=== PATIENT | female | born 1975 | race Caucasian/White ===

== ENCOUNTER 2019-06-19 11:58 | Emergency (ER) | payer MEDICAID, OTHER ==
[~2019-06-19] VITALS: Ht 167.6 cm; Wt 126.2 kg
[2019-06-19 12:14] VITALS: BP 157/85
[2019-06-19] MEDS: LIDOcaine/epinephrine TOPICAL 5 ML BTL TOP ONE ×2 (14:00→14:04)
[2019-06-19] MEDS ORDERED: CLIN150C2 PO (15:03)
[2019-06-19] MEDS ORDERED: L. R1CAP4 PO (15:03)
== END 2019-06-19 15:19 | disposition home or self-care (01) ==
LOC: ER 11:58
DX: L02.01 Cutaneous abscess of face (principal); I10 Essential (primary) hypertension; F17.200 Nicotine dependence, unspecified, uncomplicated; F12.90 Cannabis use, unspecified, uncomplicated; F15.90 Other stimulant use, unspecified, uncomplicated; Z79.2 Long term (current) use of antibiotics; Z98.890 Other specified postprocedural states
CPT/HCPCS: 10060; 99283

== ENCOUNTER 2020-04-01 17:44 | Emergency (ER) | payer MEDICAID ==
[~2020-04-01] VITALS: Ht 167.6 cm; Wt 132.0 kg
[~2020-04-01 17:44] MED LIST: L. R1CAP4 PO
[2020-04-01] MEDS ORDERED: normal saline 1000ML IV soln IVB ONE (18:05)
[2020-04-01 18:23] VITALS: BP 165/102
[2020-04-01 18:46] LABS: BASOPHILS % (AUTO) 0.4 % (0-1); EOSINOPHILS # (AUTO) 0.3 X10'3 (0-0.9); EOSINOPHILS % (AUTO) 3.3 % (0-6); HEMATOCRIT 39.1 % (35.0-45.0); HEMOGLOBIN 13.1 g/dl (12.0-16.0); LYMPHOCYTES # (AUTO) 2.3 X10'3 (1.1-4.8); LYMPHOCYTES % (AUTO) 23.1 % (21-51); MEAN CORPUSCULAR HEMOGLOBIN 29.1 PG (27.0-31.0); MEAN CORPUSCULAR HGB CONC 33.6 g/dL (33.0-36.5); MEAN CORPUSCULAR VOLUME 86.6 FL (78-98); MEAN PLATELET VOLUME 7.5 FL (7.4-10.4); MONOCYTES % (AUTO) 9.5 % (2-12); NEUTROPHILS # (AUTO) 6.4 X10'3 (1.8-7.7); NEUTROPHILS % (AUTO) 63.7 % (42-75); PLATELET COUNT 384 X10'3 (140-440); RED BLOOD COUNT 4.51 X10'6 (4.20-5.60); WHITE BLOOD COUNT 10.1 X10'3 (4.5-11.0)
[2020-04-01 19:01] LABS: CLARITY,URINE CLEAR (Clear); COLOR,URINE YELLOW (Yellow); GLUCOSE, URINE NEGATIVE (Neg); KETONES,URINE NEGATIVE (Neg); LEUKOCYTE ESTERASE ,URINE NEGATIVE (Neg); NITRITES, URINE NEGATIVE (Neg); OCCULT BLOOD,URINE NEGATIVE (Neg); PH,URINE 5.5 (4.8-8.0); PROTEIN,URINE NEGATIVE (Neg); UROBILINOGEN,URINE 0.2 E.U/dL (0.2-1.0)
[2020-04-01 19:02] LABS: URINE HCG NEGATIVE (NEG)
[2020-04-01 19:05] LABS: ALANINE AMINOTRANSFERASE 22 U/L (12-78); ALBUMIN 3.3 G/DL (3.4-5.0); ALKALINE PHOSPHATASE 54 IU/L (46-116); ANION GAP 9 (8-16); ASPARTATE AMINO TRANSFERASE 19 U/L (10-37); BILIRUBIN,TOTAL 0.2 MG/DL (0.1-1.0); BLOOD UREA NITROGEN 14 MG/DL (7-18); BUN/CREATININE RATIO 16.9 (6.6-38.0); CALCIUM 8.5 MG/DL (8.5-10.1); CHLORIDE 107 MMOL/L (99-107); CREATININE 0.83 MG/DL (0.40-0.90); ETHANOL < 0.010 GM/DL (0.0-0.010); GLUCOSE 90 MG/DL (70-104); POTASSIUM 3.3 MMOL/L (3.5-5.1); SODIUM 141 MMOL/L (135-145); TOTAL CARBON DIOXIDE 24.9 MMOL/L (24-32); TOTAL PROTEIN 6.7 G/DL (6.4-8.2); eGFR 75 ML/MIN
[2020-04-01 19:05] LABS: UA COLLECTION TYPE CLN CATCH MIDSTREAM
[2020-04-01 19:16] LABS: URINE AMPHETAMINE SCREEN NEGATIVE (Neg); URINE BARBITUATE SCREEN NEGATIVE (Neg); URINE BENZODIAZEPINES SCREEN NEGATIVE (Neg); URINE CANNABINOID SCREEN NEGATIVE (Neg); URINE COCAINE SCREEN NEGATIVE (Neg); URINE METHADONE SCREEN NEGATIVE (Neg); URINE OPIATE SCREEN NEGATIVE (Neg); URINE PHENCYCLIDINE SCREEN NEGATIVE (Neg)
== END 2020-04-01 20:48 | disposition home or self-care (01) ==
LOC: ER 17:45
DX: R55 Syncope and collapse (principal); R11.0 Nausea; R51 Headache; I10 Essential (primary) hypertension; F15.90 Other stimulant use, unspecified, uncomplicated; F12.90 Cannabis use, unspecified, uncomplicated; Z98.890 Other specified postprocedural states; Z79.4 Long term (current) use of insulin
CPT/HCPCS: 36415; 80053; 80305; 80320; 81003; 81025; 85025; 93005; 99284; J7030

== ENCOUNTER 2020-07-06 16:55 | Emergency (ER) | payer MEDICAID ==
[~2020-07-06] VITALS: Ht 167.6 cm; Wt 132.9 kg
[2020-07-06 16:57] VITALS: BP 137/74
--- NOTE | 2020-07-06 17:30 | NUR ---
Patient with jammed finger but denies pain. She states she is unable to straighten the finger.
== END 2020-07-06 18:30 | disposition home or self-care (01) ==
LOC: ER 16:55
DX: S60.032A Contusion of left middle finger without damage to nail, initial encounter (principal); M20.012 Mallet finger of left finger(s); I10 Essential (primary) hypertension; F12.90 Cannabis use, unspecified, uncomplicated; F15.90 Other stimulant use, unspecified, uncomplicated; Z98.890 Other specified postprocedural states; Z79.899 Other long term (current) drug therapy; W21.01XA Struck by football, initial encounter; Y93.61 Activity, american tackle football; Y92.89 Other specified places as the place of occurrence of the external cause; Y99.8 Other external cause status
CPT/HCPCS: 29130; 73140; 99283

== ENCOUNTER 2020-07-31 20:01 | Emergency (ER) | payer MEDICAID ==
[~2020-07-31] VITALS: Ht 167.6 cm; Wt 135.8 kg
[2020-07-31 20:10] VITALS: BP 154/82
[2020-07-31] MEDS ORDERED: LIDOcaine 1% W/epiNEPHrine 1:200,000 10ml vial IJ ONE (20:40)
[2020-07-31] MEDS ORDERED: TETanus/Pertussis (Acell)/Diphther VAC/PF (Tdap-Adult) 0.5ml syringe IMVAC ONE (20:40)
[2020-07-31] MEDS ORDERED: bacitracin 15gm ointment TP ONE (20:40)
[2020-07-31] MEDS ORDERED: LIDOcaine 1% w/epiNEPHrine 1:200,000 30ml vial IJ ONE (21:10)
== END 2020-07-31 21:59 | disposition home or self-care (01) ==
LOC: ER 20:03
DX: S61.211A Laceration without foreign body of left index finger without damage to nail, initial encounter (principal); I10 Essential (primary) hypertension; F12.90 Cannabis use, unspecified, uncomplicated; F15.90 Other stimulant use, unspecified, uncomplicated; Z98.890 Other specified postprocedural states; Z79.899 Other long term (current) drug therapy; W45.8XXA Other foreign body or object entering through skin, initial encounter; Y93.89 Activity, other specified; Y92.89 Other specified places as the place of occurrence of the external cause; Y99.8 Other external cause status
CPT/HCPCS: 12001; 90471; 90715; 99283

== ENCOUNTER 2020-09-22 01:08 | Emergency (ER) | payer MEDICAID ==
[~2020-09-22] VITALS: Ht 167.6 cm; Wt 140.0 kg
[2020-09-22 01:10] VITALS: BP 116/58
[2020-09-22] MEDS ORDERED: LIDOcaine 1% W/epiNEPHrine 1:200,000 10ml vial IJ ONE (01:35)
[2020-09-22] MEDS ORDERED: LIDOcaine 1% W/epiNEPHrine 1:100,000 20ml vial IJ ONE (01:45)
[2020-09-22] MEDS ORDERED: CEPH500C5 PO (02:42)
[2020-09-22] MEDS ORDERED: cephalexin 500mg capsule PO ONE (02:45)
== END 2020-09-22 03:15 | disposition home or self-care (01) ==
LOC: ER 01:08
DX: S91.312A Laceration without foreign body, left foot, initial encounter (principal); I10 Essential (primary) hypertension; F12.90 Cannabis use, unspecified, uncomplicated; F15.90 Other stimulant use, unspecified, uncomplicated; F17.290 Nicotine dependence, other tobacco product, uncomplicated; Z98.890 Other specified postprocedural states; Z79.2 Long term (current) use of antibiotics; Z79.899 Other long term (current) drug therapy; W25.XXXA Contact with sharp glass, initial encounter; Y93.89 Activity, other specified; Y92.89 Other specified places as the place of occurrence of the external cause; Y99.8 Other external cause status
CPT/HCPCS: 12001; 73630; 99284; 99406

== ENCOUNTER 2022-03-23 06:39 | Emergency (ER) | payer MEDICAID ==
[~2022-03-23] VITALS: Ht 167.6 cm; Wt 125.5 kg
[~2022-03-23 06:39] MED LIST changes: +LIDO20SO16 PO
[2022-03-23 08:01] LABS: BASOPHILS # (AUTO) 0.1 X10'3 (0-0.2); BASOPHILS % (AUTO) 0.7 % (0-1); EOSINOPHILS # (AUTO) 0.1 X10'3 (0-0.9); EOSINOPHILS % (AUTO) 1.3 % (0-6); HEMATOCRIT 42.4 % (35.0-45.0); HEMOGLOBIN 14.8 g/dl (12.0-16.0); LYMPHOCYTES # (AUTO) 1.4 X10'3 (1.1-4.8); LYMPHOCYTES % (AUTO) 14.3 % (21-51); MEAN CORPUSCULAR HEMOGLOBIN 33.3 PG (27.0-31.0); MEAN CORPUSCULAR HGB CONC 34.9 g/dL (33.0-36.5); MEAN CORPUSCULAR VOLUME 95.2 FL (78-98); MEAN PLATELET VOLUME 7.7 FL (7.4-10.4); MONOCYTES # (AUTO) 0.8 X10'3 (0-0.9); MONOCYTES % (AUTO) 8.3 % (2-12); NEUTROPHILS # (AUTO) 7.6 X10'3 (1.8-7.7); NEUTROPHILS % (AUTO) 75.4 % (42-75); PLATELET COUNT 323 X10'3 (140-440); RED BLOOD COUNT 4.45 X10'6 (4.20-5.60); RED CELL DISTRIBUTION WIDTH 15.3 % (11.5-14.5); WHITE BLOOD COUNT 10.1 X10'3 (4.5-11.0)
[2022-03-23 08:20] LABS: ALANINE AMINOTRANSFERASE 72 U/L (12-78); ALBUMIN 3.1 G/DL (3.4-5.0); ALBUMIN/GLOBULIN RATIO 0.8 (1.1-1.5); ALKALINE PHOSPHATASE 113 IU/L (46-116); ANION GAP 13 (8-16); ASPARTATE AMINO TRANSFERASE 115 U/L (10-37); BILIRUBIN,TOTAL 0.9 MG/DL (0.1-1.0); BLOOD UREA NITROGEN 8 MG/DL (7-18); BUN/CREATININE RATIO 9.4 (6.6-38.0); CALCIUM 8.5 MG/DL (8.5-10.1); CHLORIDE 104 MMOL/L (99-107); CREATININE 0.85 MG/DL (0.40-0.90); GLUCOSE 87 MG/DL (70-104); SODIUM 139 MMOL/L (135-145); TOTAL CARBON DIOXIDE 22.2 MMOL/L (24-32); TOTAL PROTEIN 7.1 G/DL (6.4-8.2); eGFR 73 ML/MIN
[2022-03-23 08:24] LABS: POTASSIUM 2.9 MMOL/L (3.5-5.1)
[2022-03-23] MEDS ORDERED: POTASSIUM BICARB 20meq eff tab 20 MEQ TABLET.EFF PO ONE ×2 (08:35→08:50)
[2022-03-23] MEDS ORDERED: POTA-192 PO (08:45)
[2022-03-23 09:07] VITALS: BP 111/72
== END 2022-03-23 09:08 | disposition home or self-care (01) ==
LOC: ER 06:39
DX: E87.6 Hypokalemia (principal); R00.2 Palpitations; R79.89 Other specified abnormal findings of blood chemistry; I10 Essential (primary) hypertension; F12.90 Cannabis use, unspecified, uncomplicated; F15.90 Other stimulant use, unspecified, uncomplicated; Z72.89 Other problems related to lifestyle; Z79.899 Other long term (current) drug therapy
CPT/HCPCS: 36415; 71045; 80053; 83880; 84484; 85025; 93005; 99285

== ENCOUNTER 2022-09-17 18:19 | Emergency (ER) | payer MEDICAID ==
[~2022-09-17] VITALS: Ht 167.6 cm; Wt 123.6 kg
[2022-09-17 18:38] LABS: BASOPHILS # (AUTO) 0.1 X10'3 (0-0.2); BASOPHILS % (AUTO) 0.8 % (0-1); EOSINOPHILS # (AUTO) 0.2 X10'3 (0-0.9); EOSINOPHILS % (AUTO) 1.2 % (0-6); HEMATOCRIT 42.4 % (35.0-45.0); HEMOGLOBIN 14.4 g/dl (12.0-16.0); LYMPHOCYTES % (AUTO) 19.2 % (21-51); MEAN CORPUSCULAR HEMOGLOBIN 27.9 PG (27.0-31.0); MEAN CORPUSCULAR VOLUME 82.2 FL (78-98); MEAN PLATELET VOLUME 6.9 FL (7.4-10.4); MONOCYTES # (AUTO) 0.9 X10'3 (0-0.9); MONOCYTES % (AUTO) 5.7 % (2-12); NEUTROPHILS # (AUTO) 11.4 X10'3 (1.8-7.7); NEUTROPHILS % (AUTO) 73.1 % (42-75); PLATELET COUNT 479 X10'3 (140-440); RED BLOOD COUNT 5.15 X10'6 (4.20-5.60); RED CELL DISTRIBUTION WIDTH 16.3 % (11.5-14.5); WHITE BLOOD COUNT 15.6 X10'3 (4.5-11.0)
[2022-09-17 18:58] LABS: ALANINE AMINOTRANSFERASE 16 U/L (12-78); ALBUMIN 3.4 G/DL (3.4-5.0); ALBUMIN/GLOBULIN RATIO 0.8 (1.1-1.5); ALKALINE PHOSPHATASE 127 IU/L (46-116); ANION GAP 16 (8-16); ASPARTATE AMINO TRANSFERASE 19 U/L (10-37); BILIRUBIN,TOTAL 0.2 MG/DL (0.1-1.0); BLOOD UREA NITROGEN 9 MG/DL (7-18); BUN/CREATININE RATIO 10.6 (6.6-38.0); CHLORIDE 100 MMOL/L (99-107); CREATININE 0.85 MG/DL (0.40-0.90); GLUCOSE 117 MG/DL (70-104); MAGNESIUM 1.9 MG/DL (1.5-2.4); SODIUM 137 MMOL/L (135-145); TOTAL CARBON DIOXIDE 21.3 MMOL/L (24-32); TOTAL PROTEIN 7.9 G/DL (6.4-8.2); eGFR 73 ML/MIN
[2022-09-17 19:05] LABS: POTASSIUM 2.8 MMOL/L (3.5-5.1)
--- NOTE | 2022-09-17 19:33 | NUR ---
Dr. David aware K@2.8
[2022-09-17] MEDS: potassium CL 10mEq/100ml bag 100 ML IV SCH ×2 (21:12→22:27)
[2022-09-17] MEDS ORDERED: acetaminophen 325mg tablet PO ONE (22:45)
[2022-09-18] MEDS ORDERED: thiamine 100mg/ml 2ml inj. IV ONE (00:20)
[2022-09-18] MEDS ORDERED: magnesium 2GM in 50ml NS 50 ML IV ONE (00:20)
[2022-09-18] MEDS ORDERED: potassium Cl 20 mEq SR tablet PO STA (02:28)
[2022-09-18] MEDS ORDERED: POTA10CA45 PO (02:30)
[2022-09-18 03:09] VITALS: BP 144/74
== END 2022-09-18 03:13 | disposition home or self-care (01) ==
LOC: ER 18:20
DX: E87.6 Hypokalemia (principal); R00.2 Palpitations
CPT/HCPCS: 36415; 80053; 83735; 83880; 84484; 85025; 96365; 96366; 96367; 96375; 99285; J3411; J3475; J3480; J7030

== ENCOUNTER 2025-02-12 08:45 | Emergency (ER) | payer MEDICAID ==
[~2025-02-12] VITALS: Ht 167.6 cm; Wt 127.1 kg
[2025-02-12 08:50] VITALS: BP 159/81; PULSE 67; RESP 18; TEMP 97.4; O2SAT 97
--- NOTE | 2025-02-12 09:21 | Physician Documentation ---
HPI ~ General Chief Complaint: Tooth Problem Stated Complaint: TOOTH PAIN Time Seen by MD: 08:59 Primary Medical Doctor: [facility] History of Present Illness HPI Comment This is a 49-year-old female who presents with left lower rear dental pain, patient reports that she is attempting to get in with a dentist though has been unable to find when locally that takes her insurance, she additionally reports she was seen for right upper rear dental pain at [facility] three weeks ago and was prescribed antibiotics however she feels that this did not help. Patient currently rates the pain 12/23, patient reports that she has been alternating ibuprofen and Tylenol with only mild relief. Medication Reconciliation Allergies: Coded Allergies: No Known Allergies (Unverified , 02/12/25) Scheduled Ibuprofen (Ibuprofen), 1 TAB PO Q8H L. Rhamnosus GG/Inulin (Culturelle Probiotics Capsule), 1 CAP PO Q12H PRN Lidocaine Hcl (Xylocaine Viscous), 5 ML PO Q2H PRN SORE THROAT Scheduled PRN Lidocaine Hcl (Xylocaine Viscous), 5 ML PO Q4H PRN for mouth sores Past Medical History Past Medical History: Hypertension Past Surgical History: Alcohol Use: Alcoholic Drug Use: marijuana, methamphetamine Lives In: Home Review of Systems ROS Left lower dental pain as stated above in the HPI, otherwise all systems are reviewed and negative. Physical Exam Vital Signs: Temperature: 97.4, Source: Temporal, Heart Rate: 67, Respiratory Rate: 18, BP: 159/81, Pulse Oximetry: 97, Weight: 127.100 Physical Exam VITALS: Reviewed and as above. GENERAL: Alert, nontoxic appearing, no apparent distress. HEENT: Multiple missing teeth, left lower premolar severely decayed. No erythema, no tenderness, no swelling, no fluctuance, no drainage, uvula midline RESPIRATORY: No increased work of breathing, no respiratory distress, speaking in full clear sentences Progress Results/Orders Results/Orders Vital Signs 02/12/25 08:50 Temp 97.4 Pulse 67 Resp 18 B/P (MAP) 159/81 Pulse Ox 97 Medical Decision Making Findings This well appearing 49-year-old female presented with dental pain to the left lower jaw, exam did not demonstrate evidence of local infection with no tenderness to palpation, no erythema, no discharge, or swelling. Based on history and physical exam I have low clinical suspicion for peritonsillar absce ss, uvulitis, deep tissue space infection of the head/neck, or impending airway compromise. There was no submandibular swelling or elevation of the tongue, the uvula was midline, patient is able to swallow fluids and secretion without difficulty, there is no increased work of breathing or noisy breathing. Remainder of physical exam was benign and vital signs stable. Based on pre sentation I have low suspicion for odontogenic infection and antibiotic treatment is not currently indicated, I have discussed this finding with the patient and provided her careful return to care precautions should her symptoms change. Patient verbalized understanding of return to care precautions and home care instructions. Pain control with non-narcotic medications is appropriate at this time. Patient appropriate for outpatient follow up instructed to follow up with dentist as soon as possible. Differential Dx:Considerations: Include: Alveolar fracture, Alveolar osteitis, ANUG, Facial Cellulitis, Periapical abscess, Peridontal abscess, Pulpitis, Tooth avulsion, Tooth eruption, Tooth Fracture, Trigeminal neuralgia Departure Time of Disposition: 09:23 Disposition: HOME / SELF CARE / HOMELESS Impression: Primary Impression: Toothache Condition: Improved Discharge Instructions: Dental Pain Additional Instructions: Please see a dentist as soon as possible. You may use ibuprofen and Tylenol together, up to 800 mg of ibuprofen and 1000 mg of Tylenol 3 times a day as needed for pain. May use the dental mouthwash to 6 times a day as needed, patient's spit this do not swallow it. Your exam did not demonstrate evidence of an infection therefore you are not prescribed antibiotics today however if you develop signs of infection such as worsening pain, fever, or swelling to the area please return to the emergency department for prescription for antibiotics. Please also follow up with your primary care provider in the next few days. Please return to the emergency department for any new or worsening concerning symptoms including signs of infection as mentioned above or if you develop a fever over 100.4 that does not lower with ibuprofen or Tylenol. Referrals: NO PRIMARY CARE PROVIDER (PCP) Prescriptions Lidocaine Hcl (Xylocaine Viscous) 20 Ml Solution 5 ML PO Q4H PRN for mouth sores for 10 Days, #300 ML Swish and spit. Do not swallow. Prov: JOVI ABAD 02/12/25 Ibuprofen (Ibuprofen) 800 Mg Tablet 1 TAB PO Q8H for pain for 10 Days, #30 TAB 0 Refills Prov: JOVI ABAD 02/12/25 Education Educated: Patient Educated regarding: diagnosis, treatment, prognosis, need for follow up Signature Scribe Signature: No scribe Attestation: The note accurately reflects work and decisions made by me.ERLIN Eaton 02/12/25 20:10 JOVI ABAD Feb 12, 2025 09:21
[2025-02-12] MEDS ORDERED: LIDO20SO16 PO (09:35)
[2025-02-12] MEDS ORDERED: IBUP-1986 PO (09:35)
== END 2025-02-12 10:00 | disposition home or self-care (01) ==
LOC: ER 08:45
DX: K08.89 Other specified disorders of teeth and supporting structures (principal); I10 Essential (primary) hypertension; F12.90 Cannabis use, unspecified, uncomplicated; F15.90 Other stimulant use, unspecified, uncomplicated
CPT/HCPCS: 99283

== ENCOUNTER 2025-06-30 10:19 | Emergency (ER) | payer MEDICAID ==
[~2025-06-30] VITALS: Ht 167.6 cm; Wt 116.8 kg
[~2025-06-30 10:19] MED LIST changes: +IBUP-1986 PO
[2025-06-30 10:40] VITALS: PULSE 63; RESP 18; TEMP 97.3; O2SAT 98
[2025-06-30] MEDS ORDERED: CLIN300C54 PO (11:39)
--- NOTE | 2025-06-30 11:39 | Physician Documentation ---
HPI ~ General Chief Complaint: Tooth Problem Stated Complaint: TOOTH ACHE Time Seen by MD: 11:23 Primary Medical Doctor: [facility] History of Present Illness HPI Comment Patient is seen today with complaints of dental pain from right lower jaw from dental fracture and dental abscess. Patient states she has an appointment with dentist to get them removed. She denies any fevers or chills and has no other concern or complaint at this time. Medication Reconciliation Allergies: Coded Allergies: amoxicillin (Verified Allergy, Intermediate, 06/30/25) Scheduled Ibuprofen (Ibuprofen), 1 TAB PO Q8H L. Rhamnosus GG/Inulin (Culturelle Probiotics Capsule), 1 CAP PO Q12H PRN Lidocaine Hcl (Xylocaine Viscous), 5 ML PO Q2H PRN SORE THROAT Scheduled PRN Lidocaine Hcl (Xylocaine Viscous), 5 ML PO Q4H PRN for mouth sores Past Medical History Past Medical History: Hypertension Past Surgical History: Alcohol Use: Alcoholic Drug Use: marijuana, methamphetamine Lives In: Home Review of Systems Constitutional: Denies: chills, fever, weakness Eyes: Denies: pain, blurred vision ENT: Denies: ear pain, nose pain, throat pain, mouth pain Respiratory: Denies: cough, shortness of breath Cardiovascular: Denies: chest pain, palpitations Gastrointestinal: Denies: abdominal pain, nausea, vomiting Genitourinary: Denies: burning, dysuria Female Genitalia: Denies: vaginal discharge, pelvic pain Neurological: Denies: headache, dizziness Musculoskeletal: Denies: pain, swelling Integumentary: Denies: rash, lesions Allergic/Immunologic: Denies: hives, itching Hematologic/Lymphatic: Denies: no symptoms reported Psychiatric: Denies: depression, anxiety Physical Exam Vital Signs: Temperature: 97.3, Source: Oral, Heart Rate: 63, Respiratory Rate: 18, Pulse Oximetry: 98, Weight: 116.800 Oxygen Flow Rate: 0 Physical Exam General: Awake and Alert, no acute distress. HEENT: Patient on exam does have very poor dentition with multiple dental caries and dental fractures and swelling of the right lower jaw. Periapical abscess visible. Conjunctiva pink, Sclera clear, Mucus Membranes moist. Neck: Supple without masses and tenderness. Resp: Unlabored. Lungs clear to auscultation bilaterally. Extremities: No cyanosis,clubbing or edema. Skin: Warm and Dry. Progress Results/Orders Results/Orders Vital Signs 06/30/25 10:40 Temp 97.3 Pulse 63 Resp 18 Pulse Ox 98 O2 Flow Rate 0 Medical Decision Making Findings Patient is seen today with complaints of dental pain from right lower jaw from dental fracture and dental abscess. Patient states she has an appointment with dentist to get them removed. She denies any fevers or chills and has no other concern or complaint at this time. Patient was given prescription for clindamycin 300 mg one tab 3 times a day for 10 days sent to patient's pharmacy and patient will follow up with dentist as soon as possible for removal or did not dental tooth extraction. Return to ED with any worsening, concerning or changing symptoms. She will continue Tylenol and ibuprofen as needed for symptomatic relief. Departure Disposition: HOME / SELF CARE / HOMELESS Impression: Primary Impression: Dental abscess Condition: Stable Discharge Instructions: Dental Abscess Additional Instructions: Patient was given prescription for clindamycin 300 mg one tab 3 times a day for 10 days sent to patient's pharmacy and patient will follow up with dentist as soon as possible for removal or did not dental tooth extraction. Return to ED with any worsening, concerning or changing symptoms. She will continue Tylenol and ibuprofen as needed for symptomatic relief. Referrals: NO PRIMARY CARE PROVIDER (PCP) Prescriptions Clindamycin HCl (Clindamycin HCl) 300 Mg Capsule 1 CAP PO Q8H for 10 Days, #30 CAP Prov: MATHIEU GARCIA 06/30/25 Signature Scribe Signature: No scribe Attestation: No scribe MATHIEU GARCIA PAC Jun 30, 2025 11:39
== END 2025-06-30 11:49 | disposition home or self-care (01) ==
LOC: ER 10:19
DX: K04.7 Periapical abscess without sinus (principal); I10 Essential (primary) hypertension; F12.90 Cannabis use, unspecified, uncomplicated; F15.90 Other stimulant use, unspecified, uncomplicated; F10.90 Alcohol use, unspecified, uncomplicated; Y90.9 Presence of alcohol in blood, level not specified; Z88.1 Allergy status to other antibiotic agents; Z79.899 Other long term (current) drug therapy
CPT/HCPCS: 99283